=== PATIENT | female | born 1950 | race Caucasian/White ===

== ENCOUNTER 2017-05-10 23:02 | Observation (INO) | payer MEDICARE, OTHER ==
[~2017-05-10] VITALS: Ht 152.4 cm; Wt 73.5 kg
[~2017-05-10 23:02] MED LIST: BACT800T5 PO; CLON1 PO
[2017-05-10 23:03] VITALS: BP 238/103; PULSE 77; RESP 18; TEMP 97.8; O2SAT 97
[2017-05-10] MEDS ORDERED: LORA-373 PO (23:20)
--- NOTE | 2017-05-10 23:24 | PD ---
HPI Chief Complaint: Dizziness Time Seen by Provider: 23:20 Travel History International Travel<30 days: No Contact w/Intl Traveler<30days: No Traveled to known affect area: No History of Present Illness HPI The patient is a 66 year old female who presents to the [facility] emergency department with a history of dizziness that she reports has been coming and going for the last 2 weeks. She reports that it is exacerbated by bending her head forward or moving her head quickly. The patient reports that she also has had a ringing in her left ear that is been present for the last year. She went to see her primary care physician regarding this and has been referred to an early childhood specialist. She has an appointment scheduled for later this week. The patient denies having any muffled hearing or decreased hearing. She denies having any ear pain. The patient has a history of high blood pressure in her past, however she reports that she was taken off of blood pressure medication a long time ago. The patient arrives with blood pressure of 238/103. She reports having shaking in her extremities related to increased anxiety. She reports that she last took a lorazepam for anxiety on outer day. The patient denies having any chest pain, chest pressure , or shortness of breath. She reports having nausea associated with the dizziness. She reports that the dizziness lasts for a few minutes and then resolved. She denies having any dizziness when she holds her head straight. On review of systems, the patient denies any recent known fevers, cough, congestion, neck pain, chest pain, shortness of breath, abdominal pain, vomiting , diarrhea, urinary symptoms, one-sided weakness, slurred speech, facial droop, vision changes, or difficulty with word finding ability. [facility] Past Medical History Narrative Medical The patient's past medical history is significant for hypertension, anxiety disorder. Anxiety: Yes Hypertension: Yes Past Surgical History Narrative Surgical The patient's past surgical history is reportedly none. Social History Alcohol Use: No Tobacco Use: No Substance Use: No Allergies-Medications (Allergen,Severity, Reaction): Coded Allergies: No Known Allergies (Unverified , 05/10/17) Reported Meds & Prescriptions Reported Meds & Active Scripts Active Norvasc (Amlodipine Besylate) 5 Mg Tab 5 Mg PO DAILY Reported Lorazepam 0.5 Mg Tab 0.5 Mg PO Q6H PRN Review of Systems Except as stated in HPI: all other systems reviewed are Neg General / Constitutional: No: Fever Eyes: No: Visual changes HENT: Positive: Vertigo, No: Headaches, Lightheadedness, Rhinorrhea, Congestion , Neck Stiffness, Neck Pain Cardiovascular: No: Chest Pain or Discomfort, Dyspnea on exertion Respiratory: No: Cough, Shortness of Breath Gastrointestinal: Positive: Nausea, No: Vomiting, Diarrhea, Abdominal Pain Genitourinary: No: Dysuria Musculoskeletal: No: Pain Skin: No Rash Neurologic: Positive: Dizziness, No: Weakness, Focal Abnormalities, Change in Mentation, Slurred Speech, Sensory Disturbance Psychiatric: Positive: Anxiety, Mood Disorder, No: Depression, Suicidal Ideations, Homicidal Ideation Endocrine: No: Polydipsia Hematologic/Lymphatic: No: Easy Bruising Physical Exam Narrative General: The patient is a well-developed well-nourished female in no acute distress. Head and Neck exam: Head is normocephalic atraumatic. Eyes: EOMI, pupils are equal round and reactive to light. Nose: Midline septum with pink mucous membranes Ears: Tympanic membranes bilaterally are pearly with a good cone of light, no erythema or exudate. Mouth: Dentition unremarkable. Moist mucus membranes. Posterior oropharynx is not erythematous. No tonsillar hypertrophy. Uvula midline. Airway patent. Neck: No palpable lymphadenopathy. No nuchal rigidity. No thyromegaly. Cardiovascular: Regular rate and rhythm without murmurs, gallops, or rubs. No pulse deficit to the extremities on simultaneous auscultation and palpation of her radial artery. Lungs: Clear to auscultation bilaterally. No wheezes, rhonchi, or rales. Abdomen: Soft, without tenderness to palpation in all 4 quadrants of the abdomen. No guarding, rebound, or rigidity. Normal bowel sounds are audible. No tenderness on palpation of McBurney's point. Extremities: No clubbing, cyanosis, or edema. 2+ pulses in all 4 extremities. No calf tenderness on palpation. Back: No spinous process tenderness to palpation. No costovertebral angle tenderness to palpation. Neurologic Exam: Cranial nerves 2-12 were intact on exam. Strength is 5/5 in all 4 extremities. No sensory deficits noted. No dysdiadochokinesis. The patient is noted to have nystagmus on lateral gaze that extinguishes after she looks to the right. Skin Exam: No rash noted. Intact skin that is warm and dry. Data Data Last Documented VS Vital Signs Date Time Temp Pulse Resp B/P (MAP) Pulse Ox O2 Delivery O2 Flow Rate FiO2 05/11/17 01:43 86 15 198/84 (122) 99 Room Air 05/10/17 23:03 97.8 Orders Orders Electrocardiogram (05/10/17 23:21) Complete Blood Count With Diff (05/10/17 23:21) Comprehensive Metabolic Panel (05/10/17 23:21) Creatine Kinase (Cpk) (05/10/17 23:21) Ckmb (Isoenzyme) Profile (05/10/17 23:21) Troponin I (05/10/17:) B-Type Natriuretic Peptide (05/10/17 23:21) Act Partial Throm Time (Ptt) (05/10/17 23:21) Lipase (05/10/17 23:21) Urinalysis - C+S If Indicated (05/10/17 23:21) Fibrinogen (05/10/17 23:21) Magnesium (Mg) (05/10/17 23:21) Chest, Single Ap (05/10/17 23:21) Ct Brain W/O Iv Contrast(Rout) (05/10/17 23:21) Iv Access Insert/Monitor (05/10/17 23:21) Ecg Monitoring (05/10/17 23:21) Oximetry (05/10/17 23:21) Enalaprilat Inj (Vasotec Inj) (05/11/17 00:15) Lorazepam (Ativan) (05/11/17 00:15) Prothrombin Time / Inr (Pt) (05/11/17 00:59) Labetalol Inj (Trandate Inj) (05/11/17 01:45) Admit Order (Ed Use Only) (05/11/17 01:44) Aspirin (Aspirin) (05/11/17 01:45) Labs Laboratory Tests Test 05/10/17 23:20 05/11/17 01:40 White Blood Count 6.9 TH/MM3 Red Blood Count 4.31 MIL/MM3 Hemoglobin 13.2 GM/DL Hematocrit 40.0 % Mean Corpuscular Volume 92.9 FL Mean Corpuscular Hemoglobin 30.7 PG Mean Corpuscular Hemoglobin Concent 33.0 % Red Cell Distribution Width 14.7 % Platelet Count 228 TH/MM3 Mean Platelet Volume 8.2 FL Neutrophils (%) (Auto) 61.0 % Lymphocytes (%) (Auto) 25.8 % Monocytes (%) (Auto) 10.3 % Eosinophils (%) (Auto) 2.1 % Basophils (%) (Auto) 0.8 % Neutrophils # (Auto) 4.2 TH/MM3 Lymphocytes # (Auto) 1.8 TH/MM3 Monocytes # (Auto) 0.7 TH/MM3 Eosinophils # (Auto) 0.1 TH/MM3 Basophils # (Auto) 0.1 TH/MM3 CBC Comment DIFF FINAL Differential Comment Prothrombin Time 10.5 SEC Prothromb Time International Ratio 1.0 RATIO Activated Partial Thromboplast Time 25.9 SEC Fibrinogen 365 mg/dL Blood Urea Nitrogen 20 MG/DL Creatinine 0.83 MG/DL Random Glucose 115 MG/DL Total Protein 8.0 GM/DL Albumin 4.1 GM/DL Calcium Level 9.2 MG/DL Magnesium Level 2.3 MG/DL Alkaline Phosphatase 126 U/L Aspartate Amino Transf (AST/SGOT) 18 U/L Alanine Aminotransferase (ALT/SGPT) 25 U/L Total Bilirubin 0.8 MG/DL Sodium Level 144 MEQ/L Potassium Level 3.7 MEQ/L Chloride Level 108 MEQ/L Carbon Dioxide Level 31.1 MEQ/L Anion Gap 5 MEQ/L Estimat Glomerular Filtration Rate 69 ML/MIN Total Creatine Kinase 98 U/L Troponin I LESS THAN 0.02 NG/ML B-Type Natriuretic Peptide 25 PG/ML Lipase 146 U/L Urine Color YELLOW Urine Turbidity HAZY Urine pH 7.0 Urine Specific [place] 1.017 Urine Protein NEG mg/dL Urine Glucose (UA) NEG mg/dL Urine Ketones NEG mg/dL Urine Occult Blood TRACE Urine Nitrite NEG Urine Bilirubin NEG Urine Urobilinogen LESS THAN 2.0 MG/DL Urine Leukocyte Esterase LARGE Urine RBC 3 /hpf Urine WBC 8 /hpf Urine Squamous Epithelial Cells <1 /hpf Urine Amorphous Sediment RARE Urine Mucus FEW /lpf Microscopic Urinalysis Comment CULT NOT INDICATED MDM Medical Decision Making Medical Screen Exam Complete: Yes Emergency Medical Condition: Yes Medical Record Reviewed: Yes Interpretation(s) Last Impressions Carotid Artery Ultrasound 05/11/17 0000 Signed Impressions: Service Date/Time: Thursday, May 11, 2017 09:05 - CONCLUSION: 1. No significant flow-limiting stenosis. 2. Antegrade vertebral artery flow bilaterally. Vishnu Deal MD Head CT 05/10/172320 Signed Impressions: Service Date/Time: Wednesday, May 10, 2017 23:29 - CONCLUSION: Normal examination for a patient of this age. Rohan Raphael MD Chest X-Ray 05/10/172320 Signed Impressions: Service Date/Time: Wednesday, May 10, 2017 23:37 - CONCLUSION: No acute disease. Mildly tortuous aorta. Rohan Raphael MD Differential Diagnosis TIA, versus CVA, versus intracranial mass, versus benign positional vertigo, versus Mnire's disease, versus labyrinthitis Narrative Course During the course of the patients emergency department visit, the patients history, examination, and differential diagnosis were reviewed with the patient. The patient had IV access obtained and blood work sent for analysis. The patient was placed on a bus monitor with oximetry and blood pressure monitoring. An ECG was done on arrival. The patient's ECG revealed a sinus rhythm heart rate of 83, QRS duration is 90 ms, QTC 403 ms, no acute ST segment elevation, T waves are inverted in V1. The patient was initially provided Vasotec 1.25 mg IV, Ativan 0.5 mg by mouth 1 for anxiety. The patients laboratory studies were reviewed and remarkable for a white count of 6.9, hemoglobin 13.2, platelets 228 with 10.3 monocytes. CMP is remarkable for chloride of 108, BUN 20, glucose 1:15, alkaline phosphatase 126, CPK 98, troponin I less than 0.02, BNP 25, lipase 146. PT 10.5, PTT 25.9, fibrinogen 365, urinalysis shows trace occult blood, large leukocyte esterase, 8 WBCs, culture not indicated. Radiology studies were reviewed and remarkable for a CT scan of the brain that shows no acute abnormality. A chest x-ray that shows no acute abnormality. The patient continued to have hypertension that was uncontrolled. The patient was given labetalol 10 mg IV. The patient is agreeable with the plan to proceed with evaluation and workup for possible TIA and uncontrolled hypertension The patients results were discussed with the patient, including the plan of care. I explained that further testing and/ or monitoring is indicated based on the patients history, examination, and/ or laboratory findings. Therefore, I recommended admission for additional evaluation. The patient expressed understanding and was agreeable with this plan. The patient was admitted to the hospital in stable condition and [facility] Physician Communication Physician Communication The patient's case was discussed with Dr. Estrada who did agree to admit the patient for further evaluation and treatment at this time. Diagnosis Primary Impression: Dizziness Additional Impressions: Anxiety Uncontrolled hypertension Admitting Information Admitting Physician Requests: Observation Scripts Amlodipine (Norvasc) 5 Mg Tab 5 MG PO DAILY for Blood Pressure Management, #30 TAB Prov: Henrique Lackey 05/11/17 Priscilla Meyer MD May 10, 2017 23:24
[2017-05-10 23:33] VITALS: BP 196/119; PULSE 88; RESP 21; O2SAT 98
[2017-05-10 23:37] LABS: AUTOMATED NEUTROPHIL # 4.2 TH/MM3 (1.8-7.7); BASOPHIL # 0.1 TH/MM3 (0-0.2); BASOPHIL % 0.8 % (0.0-2.0); EOSINOPHIL # 0.1 TH/MM3 (0-0.4); EOSINOPHIL % 2.1 % (0.0-4.0); HEMO FLAGS DIFF FINAL; LYMPH % 25.8 % (9.0-44.0); LYMPHOCYTE # 1.8 TH/MM3 (1.0-4.8); MEAN CELL VOLUME 92.9 FL (80.0-100.0); MEAN CORPUSCULAR HEMOGLOBIN 30.7 PG (27.0-34.0); MONO % 10.3 % (0.0-8.0); PLATELET COUNT 228 TH/MM3 (150-450); RED BLOOD COUNT 4.31 MIL/MM3 (4.00-5.30); RED CELL DISTRIBUTION WIDTH 14.7 % (11.6-17.2); WHITE BLOOD COUNT 6.9 TH/MM3 (4.0-11.0)
[2017-05-10 23:47] LABS: APTT (PATIENT) 25.9 SEC (24.3-30.1)
--- NOTE | 2017-05-10 23:50 | RADRPT ---
EXAM DATE/TIME: 05/10/2017 23:29 [facility] COMPARISON: No previous studies available for comparison. INDICATIONS : Dizziness. RADIATION DOSE: 56.35 CTDIvol (mGy) MEDICAL HISTORY : Hypertension. SURGICAL HISTORY : None. ENCOUNTER: Initial ACUITY: 1 day PAIN SCALE: 0/10 LOCATION: cranial TECHNIQUE: Multiple contiguous axial images were obtained of the head. Using automated exposure control and adj ustment of the mA and/or kV according to patient size, radiation dose was kept as low as reasonably a chievable to obtain optimal diagnostic quality images. DICOM format image data is available electro nically for review and comparison. FINDINGS: CEREBRUM: The ventricles are normal for age. No evidence of midline shift, mass lesion, hemorrhage or acute in farction. No extra-axial fluid collections are seen. POSTERIOR FOSSA: The cerebellum and brainstem are intact. The 4th ventricle is midline. The cerebellopontine angle i s unremarkable. EXTRACRANIAL: The visualized portion of the orbits is intact. SKULL: The calvaria is intact. No evidence of skull fracture. CONCLUSION: Normal examination for a patient of this age. Rohan Raphael MD on May 10, 2017 at 23:46 Board Certified Radiologist. This report was verified electronically.
[2017-05-10 23:52] LABS: ALT (GPT) 25 U/L (10-53); ANION GAP 5 MEQ/L (5-15); AST (GOT) 18 U/L (15-37); BICARBONATE 31.1 MEQ/L (21.0-32.0); BLOOD UREA NITROGEN 20 MG/DL (7-18); CHLORIDE 108 MEQ/L (98-107); GLOMERULAR FILTRATION RATE 69 ML/MIN (>89); MAGNESIUM 2.3 MG/DL (1.5-2.5); POTASSIUM 3.7 MEQ/L (3.5-5.1); SODIUM (NA) 144 MEQ/L (136-145)
--- NOTE | 2017-05-10 23:54 | RADRPT ---
EXAM DATE/TIME: 05/10/2017 23:37 [facility] COMPARISON: No previous studies available for comparison. INDICATIONS : Cough. MEDICAL HISTORY : None. SURGICAL HISTORY : None. ENCOUNTER: Initial ACUITY: 1 day PAIN SCORE: 0/10 LOCATION: Bilateral chest FINDINGS: A single view of the chest demonstrates the lungs to be symmetrically aerated without evidence of mas s, infiltrate or effusion. The cardiomediastinal contours are unremarkable except tortuous aorta. O sseous structures are intact. CONCLUSION: No acute disease. Mildly tortuous aorta. Rohan Raphael MD on May 10, 2017 at 23:52 Board Certified Radiologist. This report was verified electronically.
[2017-05-11] VITALS (7 sets, daily range): BP systolic 129–204; BP diastolic 61–95; PULSE 69–86; RESP 15–19; TEMP 97.9–98.6; O2SAT 96–100
[2017-05-11 00:05] LABS: ALKALINE PHOSPHATASE 126 U/L (45-117); TOTAL BILIRUBIN ADULT 0.8 MG/DL (0.2-1.0)
[2017-05-11] MEDS ORDERED: ENALAPRILAT 1.25 MG/ML VIAL IV PUSH ONE (00:15)
[2017-05-11] MEDS ORDERED: LORazepam 0.5 MG TAB PO ONE (00:15)
[2017-05-11 00:22] LABS: CREATINE KINASE 98 U/L (26-192)
[2017-05-11] MEDS ORDERED: ASPIRIN 325 MG TAB PO ONE (01:45)
[2017-05-11] MEDS ORDERED: LABETALOL HCL 100 MG/20 ML VIAL IV PUSH ONE (01:45)
[2017-05-11 01:48] LABS: PROTHROMBIN TIME - PATIENT 10.5 SEC (9.8-11.6)
[2017-05-11 01:57] LABS: BLOOD, URINE TRACE (NEG); COMMENT (UR) CULT NOT INDICATED; CULTURE IF INDICATED CULT NOT INDICATED; GLUCOSE,URINE NEG (NEG); KETONE, URINE NEG (NEG); MUCUS URINE FEW /lpf (OCC); NITRITE,URINE NEG (NEG); SQUAMOUS EPITHELIAL CELL URINE <1 /hpf (0-5); URINE COLOR YELLOW (YELLW/STRAW)
[2017-05-11] MEDS ORDERED: BISACODYL 10 MG SUPP RECTAL PRN (02:15)
[2017-05-11] MEDS ORDERED: MAGNESIUM HYDROXIDE SUSP 30 ML CUP PO PRN (02:15)
[2017-05-11] MEDS ORDERED: NALOXONE HCL 0.4 MG/ML AMP IV PUSH PRN (02:15)
[2017-05-11] MEDS ORDERED: LORazepam 0.5 MG TAB PO PRN (02:15)
[2017-05-11] MEDS ORDERED: ENALAPRILAT 1.25 MG/ML VIAL IV PRN (02:15)
[2017-05-11] MEDS ORDERED: SODIUM CHLORIDE 0.9% FLUSH 10 ML FLUSH IV FLUSH PRN (02:15)
[2017-05-11] MEDS ORDERED: SENNOSIDES 8.6 MG TAB PO PRN (02:15)
[2017-05-11] MEDS ORDERED: LACTULOSE SYRUP 20 GM/30 ML CUP PO PRN (02:15)
[2017-05-11] MEDS ORDERED: ONDANSETRON HCL 4 MG/2 ML VIAL IVP PRN (02:15)
--- NOTE | 2017-05-11 03:27 | HHI.HP ---
[facility] Olivia Angeles MD Admission Diagnosis Vertigo with uncontrolled hypertension, r/o TIA vs cva Diagnoses: Chief Complaint: Dizziness Travel History International Travel<30 Days: No Contact w/Intl Traveler <30 Da: No Traveled to Known Affected Are: No History of Present Illness 66-year-old female with a medical history significant for anxiety disorder presents to the hospital with complaint of worsening dizziness. Patient reports she has had intermittent dizziness for the past couple of weeks. She saw her primary care physician at which time she reported ringing in her ears and was referred to ENT. Earlier today the dizziness became unbearable. She reports a feeling of the room spinning with her. No nausea or vomiting. Her symptoms got worse after she laid her head on the side. She also reports increased level of anxiety. The patient also has a history of hypertension but states she was taken off medications back in 2013. Her blood pressure on arrival was 238/103. She denies any focal weakness. Review of Systems Constitutional: DENIES: Fever, Chills Respiratory: DENIES: Shortness of breath Cardiovascular: DENIES: Chest pain, Palpitations Genitourinary: DENIES: Dysuria Neurologic: DENIES: Headache Except as stated in HPI: all other systems reviewed are Neg Past Family Social History Past Medical History Anxiety disorder History of hypertension, currently not on medications. Past Surgical History None Reported Medications Reported Meds & Active Scripts Active Reported Lorazepam 0.5 Mg Tab 0.5 Mg PO Q6H PRN Allergies: Coded Allergies: No Known Allergies (Unverified , 05/10/17) Family History Patient was adopted. She is unaware of her family's medical history. Social History Patient denies using tobacco, alcohol, or illicit drug use. Physical Exam Vital Signs Vital Signs Date Time Temp Pulse Resp B/P (MAP) Pulse Ox O2 Delivery O2 Flow Rate FiO2 05/11/17 02:15 71 19 149/69 (95) 99 Room Air 05/11/17 01:43 86 15 198/84 (122) 99 Room Air 05/11/17 01:30 70 18 201/95 (130) 100 Room Air 05/11/17 00:12 77 19 204/95 (131) 99 Room Air 05/10/17 23:33 88 21 196/119 (144) 98 Room Air 05/10/17 23:20 95 21 100 Room Air 05/10/17 23:03 97.8 77 18 238/103 (148) 97 Room Air Physical Exam GENERAL: This is a well-nourished, well-developed patient, in no apparent distress. SKIN: No rashes, ecchymoses or lesions. Cool and dry. HEAD: Atraumatic. Normocephalic. No temporal or scalp tenderness. EYES: Pupils equal round and reactive. Extraocular motions intact. No scleral icterus. No injection or drainage. ENT: Nose without bleeding, purulent drainage or septal hematoma. Throat without erythema, tonsillar hypertrophy or exudate. Uvula midline. Airway patent. NECK: Trachea midline. No JVD or lymphadenopathy. Supple, nontender, no meningeal signs. CARDIOVASCULAR: Regular rate and rhythm without murmurs, gallops, or rubs. RESPIRATORY: Clear to auscultation. Breath sounds equal bilaterally. No wheezes , rales, or rhonchi. GASTROINTESTINAL: Abdomen soft, non-tender, nondistended. No hepato-splenomegaly , or palpable masses. No guarding. MUSCULOSKELETAL: Extremities without clubbing, cyanosis, or edema. No joint tenderness, effusion, or edema noted. No calf tenderness. Negative Homans sign bilaterally. NEUROLOGICAL: Awake and alert. Cranial nerves II through XII intact. Motor and sensory grossly within normal limits. Five out of 5 muscle strength in all muscle groups. Normal speech. Gina's test was negative. Laboratory Laboratory Tests Test 05/10/17 23:20 05/11/17 01:40 White Blood Count 6.9 Red Blood Count 4.31 Hemoglobin 13.2 Hematocrit 40.0 Mean Corpuscular Volume 92.9 Mean Corpuscular Hemoglobin 30.7 Mean Corpuscular Hemoglobin Concent 33.0 Red Cell Distribution Width 14.7 Platelet Count 228 Mean Platelet Volume 8.2 Neutrophils (%) (Auto) 61.0 Lymphocytes (%) (Auto) 25.8 Monocytes (%) (Auto) 10.3 Eosinophils (%) (Auto) 2.1 Basophils (%) (Auto) 0.8 Neutrophils # (Auto) 4.2 Lymphocytes # (Auto) 1.8 Monocytes # (Auto) 0.7 Eosinophils # (Auto) 0.1 Basophils # (Auto) 0.1 CBC Comment DIFF FINAL Differential Comment Prothrombin Time 10.5 Prothromb Time International Ratio 1.0 Activated Partial Thromboplast Time 25.9 Fibrinogen 365 Blood Urea Nitrogen 20 Creatinine 0.83 Random Glucose 115 Total Protein 8.0 Albumin 4.1 Calcium Level 9.2 Magnesium Level 2.3 Alkaline Phosphatase 126 Aspartate Amino Transf (AST/SGOT) 18 Alanine Aminotransferase (ALT/SGPT) 25 Total Bilirubin 0.8 Sodium Level 144 Potassium Level 3.7 Chloride Level 108 Carbon Dioxide Level 31.1 Anion Gap 5 Estimat Glomerular Filtration Rate 69 Total Creatine Kinase 98 Troponin I LESS THAN 0.02 B-Type Natriuretic Peptide 25 Lipase 146 Urine Color YELLOW Urine Turbidity HAZY Urine pH 7.0 Urine Specific [place] 1.017 Urine Protein NEG Urine Glucose (UA) NEG Urine Ketones NEG Urine Occult Blood TRACE Urine Nitrite NEG Urine Bilirubin NEG Urine Urobilinogen LESS THAN 2.0 Urine Leukocyte Esterase LARGE Urine RBC 3 Urine WBC 8 Urine Squamous Epithelial Cells <1 Urine Amorphous Sediment RARE Urine Mucus FEW Microscopic Urinalysis Comment CULT NOT INDICATED Result Diagram: 05/10/17231905/10/172319 Imaging Last Impressions Head CT 05/10/172320 Signed Impressions: Service Date/Time: Wednesday, May 10, 2017 23:29 - CONCLUSION: Normal examination for a patient of this age. Rohan Raphael MD Chest X-Ray 05/10/172320 Signed Impressions: Service Date/Time: Wednesday, May 10, 2017 23:37 - CONCLUSION: No acute disease. Mildly tortuous aorta. Rohan Raphael MD Caprini VTE Risk Assessment Caprini VTE Risk Assessment: Mod/High Risk (score >= 2) Caprini Risk Assessment Model Point Value = 1 Point Value = 2 Point Value = 3 Point Value = 5 Age 41-60 Minor surgery BMI > 25 kg/m2 Swollen legs Varicose veins or History of unexplained or recurrent spontaneous Oral contraceptives or hormone replacement Sepsis (< 1 month) Serious lung disease, including pneumonia (< 1 month) Abnormal pulmonary function Acute myocardial infarction Congestive heart failure (< 1 month) History of inflammatory bowel disease Medical patient at bed rest Age 61-74 Arthroscopic surgery Major open surgery (> 45 min) Laparoscopic surgery (> 45 min) Malignancy Confined to bed (> 72 hours) Immobilizing plaster cast Central venous access Age >= 75 History of VTE Family history of VTE Factor V Leiden Prothrombin [id number] Lupus anticoagulant Anticardiolipin antibodies Elevated serum homocysteine Heparin-induced thrombocytopenia Other congenital or acquired thrombophilia Stroke (< 1 month) Elective arthroplasty Hip, pelvis, or leg fracture Acute spinal cord injury (< 1 month) Prophylaxis Regimen Total Risk Factor Score Risk Level Prophylaxis Regimen 0-1 Low Early ambulation 2 Moderate Order ONE of the following: *Sequential Compression Device (SCD) *Heparin 5000 units SQ BID 3-4 Higher Order ONE of the following medications: *Heparin 5000 units SQ TID *Enoxaparin/Lovenox 40 mg SQ daily (WT < 150 kg, CrCl > 30 mL/min) *Enoxaparin/Lovenox 30 mg SQ daily (WT < 150 kg, CrCl > 10-29 mL/min) *Enoxaparin/Lovenox 30 mg SQ BID (WT < 150 kg, CrCl > 30 mL/min) AND/OR *Sequential Compression Device (SCD) 5 or more Highest Order ONE of the following medications: *Heparin 5000 units SQ TID (Preferred with Epidurals) *Enoxaparin/Lovenox 40 mg SQ daily (WT < 150 kg, CrCl > 30 mL/min) *Enoxaparin/Lovenox 30 mg SQ daily (WT < 150 kg, CrCl > 10-29 mL/min) *Enoxaparin/Lovenox 30 mg SQ BID (WT < 150 kg, CrCl > 30 mL/min) AND *Sequential Compression Device (SCD) Assessment and Plan Problem List: (1) Dizziness ICD Code: R42 - Dizziness and giddiness (2) Anxiety ICD Code: F41.9 - Anxiety disorder, unspecified (3) Hypertensive emergency ICD Code: I16.1 - Hypertensive emergency Assessment and Plan 66-year-old female who presented for extreme dizziness and markedly elevated blood pressure. I'm concerned that her neuro symptoms are due to hypertensive emergency. However need to rule out other causes of dizziness such as TIA or CVA. Hypertensive emergency: Patient has since received antihypertensives and her symptoms resolved as her blood pressure improved. - Continue Vasotec as needed. - Start amlodipine 5 mg daily. Monitor BP and adjust antihypertensives as indicated. Dizziness: Likely related to uncontrolled hypertension. Obtain brain MRI to rule out CVA. Carotid ultrasound. Benign positional vertigo is also on the differential. Further workup can be done outpatient. Anxiety disorder: Continue Ativan as needed. GI prophylaxis: Stool softener PRN constipation. DVT PPx: Heparin The patient has a PCP for follow-up. If her blood pressure is acceptable tomorrow, she could be discharged to follow-up with her PCP for further titration of antihypertensives. Discussed Condition With Dm Chahal MD May 11, 2017 03:27
[2017-05-11] MEDS ORDERED: SODIUM CHLORIDE 0.9% FLUSH 10 ML FLUSH IV FLUSH SCH (09:00)
[2017-05-11] MEDS ORDERED: amLODIPine BESYLATE 5 MG TAB PO SCH (09:00)
[2017-05-11] MEDS ORDERED: HEPARIN SODIUM - SQ 10,000 UNITS/ML VIAL SQ SCH (09:00)
--- NOTE | 2017-05-11 11:33 | HHI.PR ---
Subjective Remarks Follow-up for dizziness and hypertension. The patient states that dizziness has resolved. She denies any headache, numbness, tingling, weakness. Discussed with RN, the patient refused brain MRI. Discuss with patient the reasoning for ruling out stroke, and the patient continues to refuse MRI and states she will follow-up with her PCP for referral to open MRI. Carotid ultrasound performed, results pending. The patient has a follow-up appointment with ENT this week for possible vertigo. She does complain of some anxiety, takes lorazepam as needed at home. She reports occasional overwhelmed feelings , but denies any suicidal thoughts. Objective Vitals Vital Signs Date Time Temp Pulse Resp B/P (MAP) Pulse Ox O2 Delivery O2 Flow Rate FiO2 05/11/17 08:32 98.3 73 16 162/72 (102) 99 05/11/17 04:14 97.9 69 16 133/64 (87) 99 05/11/17 03:54 05/11/17 02:15 71 19 149/69 (95) 99 Room Air 05/11/17 01:43 86 15 198/84 (122) 99 Room Air 05/11/17 01:30 70 18 201/95 (130) 100 Room Air 05/11/17 00:12 77 19 204/95 (131) 99 Room Air 05/10/17 23:33 88 21 196/119 (144) 98 Room Air 05/10/17 23:20 95 21 100 Room Air 05/10/17 23:03 97.8 77 18 238/103 (148) 97 Room Air I/O 05/10/17 05/10/17 05/10/17 05/11/17 05/11/17 05/11/17 07:00 15:00 23:00 07:00 15:00 23:00 Intake Total 240 ml Balance 240 ml Intake Oral 240 ml Result Diagram: 05/10/17231905/10/172319 Imaging Last Impressions Head CT 05/10/172320 Signed Impressions: Service Date/Time: Wednesday, May 10, 2017 23:29 - CONCLUSION: Normal examination for a patient of this age. Rohan Raphael MD Chest X-Ray 05/10/172320 Signed Impressions: Service Date/Time: Wednesday, May 10, 2017 23:37 - CONCLUSION: No acute disease. Mildly tortuous aorta. Rohan Raphael MD Objective Remarks GENERAL: Well-developed well-nourished. In no acute distress. SKIN: Warm and dry. No lesions noted. HEENT: Normocephalic. Pupils equal and round. Mucous membranes pink and moist. CARDIOVASCULAR: Regular rate and rhythm. No murmur appreciated. RESPIRATORY: No accessory muscle use. Clear to auscultation. Breath sounds equal bilaterally. GASTROINTESTINAL: Abdomen soft, non-tender, nondistended. Bowel sounds x4. MUSCULOSKELETAL: No obvious deformities. No clubbing or cyanosis. No edema. NEUROLOGICAL: Awake and alert. No focal neurological deficits. Moves upper and lower extremities spontaneously. Normal speech. Strength 5/5. PSYCHIATRIC: Appropriate mood and affect; insight and judgment normal. A/P Problem List: (1) Dizziness ICD Code: R42 - Dizziness and giddiness Status: Acute (2) Anxiety ICD Code: F41.9 - Anxiety disorder, unspecified Status: Chronic (3) Hypertensive emergency ICD Code: I16.1 - Hypertensive emergency Status: Acute Assessment and Plan 66-year-old female who presented for extreme dizziness and markedly elevated blood pressure. Given IV IV labetalol and enalapril in the ED with improvement in blood pressure and dizziness. Admitted for blood pressure control and ruling out other causes of dizziness such as TIA or CVA. Hypertensive emergency: Patient has since received IV antihypertensives and her symptoms resolved as her blood pressure improved. - Continue Vasotec as needed. - Started amlodipine 5 mg daily. Monitor BP and adjust antihypertensives as indicated. - Patient is slightly anxious and tachycardic, consider starting metoprolol Dizziness: Likely related to uncontrolled hypertension. - Refuses brain MRI. - Carotid ultrasound performed, results pending. - Benign positional vertigo is also on the differential. Further workup can be done outpatient. - PT consulted, no restrictions Anxiety disorder: Denies SI. - Continue Ativan as needed. - Encouraged outpatient psychiatry follow-up GI prophylaxis: Stool softener PRN constipation. DVT prophylaxis: Heparin Discharge Planning Follow-up carotid ultrasound result. Follow-up blood pressure control. Possible discharge later today for outpatient follow-up if carotid ultrasound is unremarkable and blood pressure remains controlled. Carotid ultrasound showed no significant stenosis. Blood pressure is controlled , prescription written for amlodipine. Discharge home today for outpatient follow-up with PCP and ENT. Henrique Lackey 25, 2017 11:33
[2017-05-11] MEDS ORDERED: AMLO5 PO (13:06)
--- NOTE | 2017-05-11 13:49 | EKG ---
Date Performed: 05/10/2017 Time Performed: 23:31:49 PTAGE: 66 years EKG: Sinus rhythm LEFT ATRIAL ENLARGEMENT POSSIBLE RIGHT VENTRICULAR CONDUCTION DELAY POSSIBLE LEFT VENTRICULAR HYPERT ROPHY ABNORMAL ECG NO PREVIOUS TRACING DOCTOR: Yaakov Osuna Interpretating Date/Time 05/11/2017 13:47:25
--- NOTE | 2017-05-11 14:16 | RADRPT ---
EXAM DATE/TIME: 05/11/2017 09:05 [facility] COMPARISON: No previous studies available for comparison. INDICATIONS : Syncope. MEDICAL HISTORY : Hypercholesterolemia. Hypertension. Syncope. SURGICAL HISTORY : None. ENCOUNTER: Initial ACUITY: 1 day PAIN SCORE: 0/10 LOCATION: Bilateral neck PEAK SYSTOLIC VELOCITIES (cm/sec): ICA/CCA RATIO: Right: 0.8 Left: 0.9 ICA: Right: 69.9 Left: 99.1 CCA: Right: 87.5 Left: 107.6 ECA: Right: 74.6 Left: 81.4 VERTEBRAL: Right: 38.4 antegrade Left: 55.2 antegrade Elevated flow velocities and ICA/CCA ratios have been found to correlate with increased degrees of vessel stenosis, calculated as percentage of diameter relative to a normal segment of distal ICA/CCA FINDINGS: RIGHT CAROTID: No significant stenosis is visualized. The waveforms are within normal limits. LEFT CAROTID: No significant stenosis is visualized. The waveforms are within normal limits. VERTEBRAL ARTERIES: Antegrade flow is seen in both vertebral arteries. MISCELLANEOUS: None. CONCLUSION: 1. No significant flow-limiting stenosis. 2. Antegrade vertebral artery flow bilaterally. Vishnu Deal MD on May 11, 2017 at 14:14 Board Certified Radiologist. This report was verified electronically.
== END 2017-05-11 15:36 | disposition home or self-care (01) ==
LOC: NEPE 23:02 → NEDA 05-11 01:45 → NEPFCDU 05-11 03:53
PROVIDERS: ADMIT Hospitalist; ATTEND Hospitalist
DX: I16.1 Hypertensive emergency (principal); R94.31 Abnormal electrocardiogram [ECG] [EKG]; I10 Essential (primary) hypertension; F41.9 Anxiety disorder, unspecified; E78.00 Pure hypercholesterolemia, unspecified; R00.0 Tachycardia, unspecified; Z79.899 Other long term (current) drug therapy
CPT/HCPCS: 70450; 71010; 80053; 81001; 82550; 83690; 83735; 83880; 84484; 85025; 85384; 85610; 85730; 93005; 93880; 96372; 96374; 96375; 97162; 99285; G0378; G8987; G8988; J1644

== ENCOUNTER 2017-06-09 10:19 | Emergency (ER) | payer MEDICARE ==
[~2017-06-09] VITALS: Ht 152.4 cm; Wt 70.7 kg
[~2017-06-09 10:19] MED LIST changes: +AMLO5 PO; -BACT800T5 PO; -CLON1 PO; +LORA-373 PO
[2017-06-09 10:44] VITALS: BP 136/67; PULSE 74; RESP 16; TEMP 98.2; O2SAT 99
[2017-06-09] MEDS ORDERED: HYDR25TA5 PO (11:20)
[2017-06-09] MEDS ORDERED: SERT25TA83 PO (11:20)
--- NOTE | 2017-06-09 11:31 | PD ---
HPI Chief Complaint: Headache Time Seen by Provider: 11:11 Travel History International Travel<30 days: No Contact w/Intl Traveler<30days: No Traveled to known affect area: No History of Present Illness HPI This 66-year-old female that she went for a doctor's appointment today. She was admitted to the hospital month ago with vertigo and high blood pressure. She was released on hydrochlorothiazide and Norvasc she went for a physician's appointment today and apparently her blood pressure was 190. The physician called even back and she was transported here. She was just diagnosed with high blood pressure month ago and this is the first time she has been on blood pressure medication. PFSH Past Medical History Blood Disorders: No Anxiety: Yes Depression: Yes Heart Rhythm Problems: No Cancer: No Cardiovascular Problems: No High Cholesterol: Yes Congestive Heart Failure: No Diminished Hearing: No Endocrine: No Genitourinary: No Hypertension: Yes Neurologic: No Reproductive: No Respiratory: No Tetanus Vaccination: > 5 Years Influenza Vaccination: No ?: Not Past Surgical History Other Surgery: Yes Social History Alcohol Use: No Tobacco Use: No Substance Use: No Allergies-Medications (Allergen,Severity, Reaction): Coded Allergies: No Known Allergies (Unverified , 06/09/17) Reported Meds & Prescriptions Reported Meds & Active Scripts Active Norvasc (Amlodipine Besylate) 5 Mg Tab 5 Mg PO DAILY Reported Sertraline (Sertraline HCl) 25 Mg Tab 25 Mg PO DAILY Hydrochlorothiazide 25 Mg Tab 25 Mg PO DAILY Lorazepam 0.5 Mg Tab 0.5 Mg PO Q6H PRN Review of Systems General / Constitutional: No: Fever, Chills Eyes: No: Diploplia, Blurred Vision HENT: Positive: Headaches Cardiovascular: No: Chest Pain or Discomfort, Palpitations Respiratory: No: Cough, Shortness of Breath Gastrointestinal: No: Nausea Genitourinary: No: Urgency, Frequency Skin: No Rash Neurologic: Positive: Weakness Hematologic/Lymphatic: No: Easy Bruising Physical Exam Narrative GENERAL: Well-developed female SKIN: Focused skin assessment warm/dry. HEAD: Atraumatic. Normocephalic. EYES: Pupils equal and round. No scleral icterus. No injection or drainage. ENT: No nasal bleeding or discharge. Mucous membranes pink and moist. NECK: Trachea midline. No JVD. CARDIOVASCULAR: Regular rate and rhythm. No murmur appreciated. RESPIRATORY: No accessory muscle use. Clear to auscultation. Breath sounds equal bilaterally. GASTROINTESTINAL: Abdomen soft, non-tender, nondistended. Hepatic and splenic margins not palpable. MUSCULOSKELETAL: No obvious deformities. No clubbing. No cyanosis. No edema. NEUROLOGICAL: Awake and alert. No obvious cranial nerve deficits. Motor grossly within normal limits. Normal speech. PSYCHIATRIC: Appropriate mood and affect; insight and judgment normal. Data Data Last Documented VS Vital Signs Date Time Temp Pulse Resp B/P (MAP) Pulse Ox O2 Delivery O2 Flow Rate FiO2 06/09/17 12:34 73 16 140/75 (96) 100 06/09/17 11:17 Room Air 06/09/17 10:44 98.2 Orders Orders Electrocardiogram (06/09/17 11:24) Complete Blood Count With Diff (06/09/17 11:24) Basic Metabolic Panel (Bmp) (06/09/17 11:24) Potassium Chloride (Kcl) (06/09/17 12:30) Labs Laboratory Tests Test 06/09/17 11:30 White Blood Count 9.3 TH/MM3 Red Blood Count 4.48 MIL/MM3 Hemoglobin 13.8 GM/DL Hematocrit 40.4 % Mean Corpuscular Volume 90.2 FL Mean Corpuscular Hemoglobin 30.7 PG Mean Corpuscular Hemoglobin Concent 34.0 % Red Cell Distribution Width 13.1 % Platelet Count 223 TH/MM3 Mean Platelet Volume 8.1 FL Neutrophils (%) (Auto) 79.4 % Lymphocytes (%) (Auto) 12.8 % Monocytes (%) (Auto) 7.1 % Eosinophils (%) (Auto) 0.4 % Basophils (%) (Auto) 0.3 % Neutrophils # (Auto) 7.4 TH/MM3 Lymphocytes # (Auto) 1.2 TH/MM3 Monocytes # (Auto) 0.7 TH/MM3 Eosinophils # (Auto) 0.0 TH/MM3 Basophils # (Auto) 0.0 TH/MM3 CBC Comment DIFF FINAL Differential Comment Blood Urea Nitrogen 20 MG/DL Creatinine 0.76 MG/DL Random Glucose 104 MG/DL Calcium Level 9.2 MG/DL Sodium Level 138 MEQ/L Potassium Level 3.3 MEQ/L Chloride Level 100 MEQ/L Carbon Dioxide Level 32.0 MEQ/L Anion Gap 6 MEQ/L Estimat Glomerular Filtration Rate 76 ML/MIN MDM Medical Decision Making Medical Screen Exam Complete: Yes Emergency Medical Condition: Yes Medical Record Reviewed: Yes Differential Diagnosis Differential includes hypertension, adverse medication reaction, I find imbalance Narrative Course Blood pressure has been stable here. Her main complaint is of a throbbing sensation in her head and I suspect this is secondary to the Norvasc. The Norvasc and replace it with lisinopril. Potassium is low at 3.3 and I will give some supplemental potassium. I will not prescribe a supplement however as she is going on the lisinopril she is stable for discharge Diagnosis Primary Impression: Hypertension Qualified Codes: I10 - Essential (primary) hypertension Additional Instructions: stop Norvasc, Scripts Lisinopril (Lisinopril) 10 Mg Tab 10 MG PO DAILY for 30 Days, #30 TAB 0 Refills Prov: Ajay Funes MD 06/09/17 Disposition: 01 DISCHARGE HOME Condition: Stable Ajay Funes MD Jun 09, 2017 11:31
[2017-06-09 11:40] LABS: AUTOMATED NEUTROPHIL # 7.4 TH/MM3 (1.8-7.7); BASOPHIL % 0.3 % (0.0-2.0); EOSINOPHIL % 0.4 % (0.0-4.0); HEMATOCRIT 40.4 % (35.0-46.0); HEMOGLOBIN 13.8 GM/DL (11.6-15.3); LYMPH % 12.8 % (9.0-44.0); LYMPHOCYTE # 1.2 TH/MM3 (1.0-4.8); MEAN CELL VOLUME 90.2 FL (80.0-100.0); MEAN CORPUSCULAR HEMOGLOBIN 30.7 PG (27.0-34.0); MEAN PLATELET VOLUME 8.1 FL (7.0-11.0); MONO % 7.1 % (0.0-8.0); MONOCYTE # 0.7 TH/MM3 (0-0.9); NEUT % 79.4 % (16.0-70.0); PLATELET COUNT 223 TH/MM3 (150-450); RED BLOOD COUNT 4.48 MIL/MM3 (4.00-5.30); RED CELL DISTRIBUTION WIDTH 13.1 % (11.6-17.2); WHITE BLOOD COUNT 9.3 TH/MM3 (4.0-11.0)
[2017-06-09 11:49] LABS: CALCIUM 9.2 MG/DL (8.5-10.1)
[2017-06-09 11:53] LABS: CREATININE 0.76 MG/DL (0.50-1.00)
[2017-06-09] MEDS ORDERED: POTASSIUM CHLORIDE 10 MEQ CONTROLLED RELEASE TAB PO ONE (12:30)
[2017-06-09 12:34] VITALS: BP 140/75; PULSE 73; RESP 16; O2SAT 100
[2017-06-09] MEDS ORDERED: LISI10TA3 PO (12:39)
--- NOTE | 2017-06-09 22:13 | EKG ---
Date Performed: 06/09/2017 Time Performed: 11:37:35 PTAGE: 66 years EKG: Sinus rhythm POSSIBLE LEFT ATRIAL ENLARGEMENT INCOMPLETE RIGHT BUNDLE BRANCH BLOCK POSSIBLE LEFT VENTRICULAR HYPE RTROPHY ABNORMAL ECG NO PREVIOUS TRACING DOCTOR: Tacos Jose Interpretating Date/Time 06/09/2017 22:12:38
== END 2017-06-09 13:00 | disposition home or self-care (01) ==
LOC: PHED 10:19
DX: I10 Essential (primary) hypertension (principal)
CPT/HCPCS: 80048; 85025; 93005